=== PATIENT | female | born 1955 | race Caucasian/White ===

== ENCOUNTER → 2017-12-25 08:04 | Outpatient (CLI) | payer OTHER, SELFPAY ==
[2017-12-29 11:55] LABS: HPV APTIMA, High Risk Negative (Negative)
== END ==
PROVIDERS: Visit Provider Obstetrics & Gynecology
DX: Z12.4 Encounter for screening for malignant neoplasm of cervix (principal)
CPT/HCPCS: 88175; G0145

== ENCOUNTER 2018-06-21 09:55 | Observation (INO) | payer OTHER, SELFPAY ==
--- NOTE | 2018-06-15 16:42 | EKG12_ITS ---
Test Reason : PRE OP Blood Pressure : / mmHG Vent. Rate : 077 BPM Atrial Rate : 077 BPM P-R Int : 160 ms QRS Dur : 084 ms QT Int : 398 ms P-R-T Axes : 074 070 049 degrees QTc Int : 450 ms Normal sinus rhythm Normal ECG Confirmed by REINIER CRUM ([id number]), associate editor MIRANDA ESPAÑA ([id number] on 06/20/2018 2:34:23 PM Referred By: Melvina Luther Confirmed By:REINIER CRUM
[2018-06-15 17:35] LABS: Hematocrit 42.5 % (37-47); Hemoglobin 14.3 g/dl (12.0-15.0); Mean Corp Hgb Conc 33.6 g/gl (32-36); Mean Corpuscular Hgb 30.2 pg (27.0-32.0); Mean Corpuscular Volume 89.9 fL (81-99); Mean Platelet Vol. 9.3 fl (6.2-12.0); Platelet Count 325 K/mm3 (150-450); RBC Distribution Width CV 13.2 % (11.6-14.6); RBC Distribution Width SD 43.2 fl (35.1-43.9); Red Blood Count 4.73 M/mm3 (4.2-5.4); White Blood Count 7.1 K/mm3 (4.4-11.0)
[2018-06-15 17:45] LABS: Scan Indicated on CBC? Y/N NO
[2018-06-15 17:46] LABS: Prothrombin Time (Protime)PT. 13.2 SECONDS (11.7-14.9)
[2018-06-15 17:47] LABS: Partial Thromboplast Time 31.8 Seconds (24.1-36.2)
[2018-06-15 17:50] LABS: Anion Gap 7 (5-15); BUN 16 mg/dL (7-18); BUN/Creat Ratio 23.7 RATIO (10-20); Calcium,Total 9.1 mg/dL (8.5-10.1); Chloride 102 mmol/L (98-107); Creatinine, Serum 0.68 mg/dL (0.55-1.02); EST Glomerular Filtration Rate 94 mL/min (>60); Est Glom Filt Rate - Afr Amer 114 mL/min (>60); Glucose 85 mg/dL (74-106); Potassium 3.6 mmol/L (3.5-5.1); Sodium Level 141 mmol/L (136-145)
[2018-06-21] VITALS (17 sets, daily range): BP systolic 76–152; BP diastolic 45–85; PULSE 60–88; RESP 16–18; TEMP 36.3–37.1; O2SAT 94–100; BMI 25.0; BMI 25.6
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
--- NOTE | 2018-06-21 07:15 | HYST_PTH ---
PATIENT: JAZMINE SOTO LOC: MS2 U#:[id number] AGE/SX: 63/F ROOM: MS208 RE06/21/[address]: Dr. Melvina Carrillo MD : 1955 BED: 1 DIS: 06/22/2018 SPEC #: [id number] RECD: 06/22/18 14:27 STATUS: KENN GRAEME #: [id number] ADEOLA: 06/21/18 07:[address]: Melvina Bautista DEPT: SURGICAL PATHOLOGY RECD BY: John Rodriguez ENTERED: 06/22/18 14:28 SP TYPE: HYSTERECT OTHR DR: Dr. Tammy Jimenez MD Tissues: Uterus, NOS Procedures: Surgery Specimen Level V HEADER OPERATION: Vaginal hysterectomy, bilateral salpingo-oophorectomy PRE-OP DIAGNOSIS: Incomplete uterovaginal prolapse and rectocele TISSUE SUBMITTED: Uterus, bilateral ovaries and fallopian tubes (tie on left ovary and fallopian tube) MICROSCOPIC DIAGNOSIS Uterus, hysterectomy: Cervix - nabothian cysts and minimal chronic inflammation. Endometrium - inactive endometrium with cystic change. Myometrium - leiomyoma. Right ovary - corpora albicantia. Right fallopian tube - no pathologic change. Left ovary - corpora albicantia. Left fallopian tube - no pathologic change. AM:jam 06/25/18 MICROSCOPIC DESCRIPTION Slides are reviewed. GROSS DESCRIPTION Received in fixative is one container labeled with the patient's name and designated uterus. The specimen consists of a uterus with attached cervix and detached right and left fallopian tubes. The uterus with cervix measures 9 x 4 x 3.5 cm and weighs 53.6 gm. The ectocervix is unremarkable. The cervical os is oval in contour. The endocervical canal measures 2 cm in length and is grossly unremarkable. The triangular endometrial cavity measures 3 x 2 cm. The velvety, light vilchis endometrium measures up to 0.1 cm in thickness. The myometrium measures 1.2 cm in average thickness and is distorted by a firm, rubbery, vilchis-white nodule measuring 3 x 2.2 x 2 cm. The nodule is submucosal and intramural in location. Cut surface of the nodule reveal a whorled appearance without areas of cyst formation or necrosis. The right ovary is light vilchis, elongated measuring 4.2 x 1 x 0.5 cm. Serial sections of the ovary do not reveal mass lesions. The right fallopian tube measures 2.2 cm in length and 0.3 cm in average diameter. No tubo-ovarian adhesions are seen. The left ovary is similar in appearance to right ovary and measures 3.5 x 1.2 x 0.5 cm. Serial sections likewise do not reveal mass lesions. The left fallopian tube is similar in appearance to right fallopian tube measuring 3.5 cm in length and 0.3 cm in average diameter. No tubo-ovarian adhesions are seen. [employer] Assistant sections are submitted in eight cassettes as follows: 1 - anterior cervix, 2 - posterior cervix, 3 - anterior uterine wall, 4 - posterior uterine wall, 5 & 7 - myometrial nodule, 6 - right fallopian tube and ovary, 8 - left fallopian tube and ovary. / AM:jam 06/22/18 TC:1 CPT: 12816
[2018-06-21] MEDS: Lubricating Jelly 60 GM Tube 30 GM TOPICAL (07:49)
[2018-06-21] MEDS: Vasopressin 20 UNITS/ML Vial (07:50)
[2018-06-21] MEDS: Estrogens,Conj. 1 Tube 1 DOSE (09:44)
--- NOTE | 2018-06-21 10:00 | PCM.OPRPT ---
Problem List (1) Uterovaginal prolapse, incomplete Status: Acute (2) Rectocele Status: Acute Report of Operation Date of Procedure: 06/21/18 Pre-Operative Diagnosis: Uterovaginal prolapse, rectocele Post-Operative Diagnosis: Uterovaginal prolapse, rectocele Surgery/Procedure Performed:: Total vaginal hysterectomy, bilateral salpingo-oophorectomy, Modified Schaeffer's culdoplasty, posterior repair with perineorrhaphy elder counselor: Cisco Lomas elder counselor: Lázaro Milton Type of Anesthesia:: General Anesthesiologist: Fidencio Feliz Specimen's removed: 1.uterus and cervix. 2. tubes and ovaries Estimated Blood Loss (mL): 200 Description of Procedure: Indications: 63-year-old para 3003 with a history of uterovaginal prolapse with rectocele presents for scheduled total vaginal hysterectomy, bilateral salpingo-oophorectomy, possible sacral spinous ligament fixation and possible rectocele. Risks, benefits, indications and alternatives of procedure were reviewed at length and patient desired to proceed. Patient was agreeable to the sacrospinous ligament fixation being performed by Dr. Lomas this was discussed prior to her procedure. Procedure: The patient was taken to the operating room and Center was performed. She is placed in a dorsal supine position and induced under general anesthesia and intubated. She is then placed into dorsal lithotomy and examination under anesthesia was performed. The perineum was then prepped and draped in sterile fashion. A Awll catheter was placed into the bladder. Patient was placed into high lithotomy. Weighted speculum was placed into the vagina and the cervix grasped using a Xavier tenaculum. A total of 10 cc of 20 units of vasopressin diluted in 100 cc of normal saline was injected weekly. A circumferential incision was made using a scalpel along the cervix. The vesicouterine space was developed using sharp dissection using the Metzenbaum scissors. A curved Asha was placed to retract the anterior mucus and bladder. The anterior cul-de-sac peritoneum was identified and sharply entered. The curved Asha was placed into the anterior cul-de-sac. In similar fashion, attention was turned to the posterior cervix and the posterior cul-de-sac was sharply entered. A long weighted speculum was placed into the posterior cul-de-sac. The uterosacral, uterine vessels and cardinal ligaments were serially Elizabeth clamps, cut and suture ligated using 0 Vicryl. 0 Vicryl was used for all sutures in this case unless otherwise noted. The right then left utero-ovarian ligaments was Elizabeth clamped cut and suture ligated and the uterus and cervix released. Attention was turned to the left adnexa. The left tubal fimbria was identified in the ovary followed back to the infundibular pelvic ligament. The ligament was clamped, cut however lost during suture ligation with retraction. The pedicle was identified and suture ligated with good hemostasis. Attention was then turned to the right adnexa, the tubal fimbria and ovary were identified and tracked back to the infundibular pelvic ligament. The right infundibulopelvic ligament was Elizabeth clamps, cut and suture-ligated doubly with good hemostasis. There was some bleeding from the posterior peritoneum thus the posterior cuff was reefed using 0 Vicryl running lock suture with improved hemostasis. The vaginal cuff did not have significant descensus thus I felt the sacrospinous ligament fixation was no longer indicated. I proceeded with a modified Schaeffer culdoplasty incorporating the uterosacral ligaments with the posterior peritoneum in a single suture. Vaginal cuff was then closed longitudinally using serial [id number] sutures. Attention was then turned to the perineum. A transverse incision was made just anterior to the hymenal ring and a triangular segment of perineal epithelium was excised. The vaginal epithelium was sharply dissected from the underlying fascia at the longitudinally to just above the level of the rectocele and midline incision performed here. The rectocele sac and fascia was bluntly dissected from the overlying epithelium. The fascia was reapproximated using 2-0 Vicryl simple interrupted sutures at the midline with rectocele sac reduction. Excess vaginal epithelium was excised and discarded. The posterior vaginal epithelium was reapproximated using 0 Vicryl to the level of the hymenal ring. The bulbocavernosus ligaments at insertion to the perineal body was reinforced using suture. The skin was closed subcuticularly. A vaginal packing with premarin was placed vaginally and the procedure complete. Sponge, instrument and needle counts were correct x 2. - Complications None - Admit VTE Documentation VTE Present on Admission: No VTE Mechan Device Prophylaxis: SCD's VTE Pharm Prophylaxis ordered?: No
--- NOTE | 2018-06-21 10:11 | OP.PCM_ITS ---
Problem List (1) Uterovaginal prolapse, incomplete Status: Acute (2) Rectocele Status: Acute Report of Operation Date of Procedure: 06/21/18 Pre-Operative Diagnosis: Uterovaginal prolapse, rectocele Post-Operative Diagnosis: Uterovaginal prolapse, rectocele Surgery/Procedure Performed:: Total vaginal hysterectomy, bilateral salpingo- oophorectomy, Modified Schaeffer's culdoplasty, posterior repair with perineorrhaphy supervisor powdered sugar: Cisco Lomas supervisor powdered sugar: Lázaro Milton Type of Anesthesia:: General Anesthesiologist: Fidencio Feliz Specimen's removed: 1.uterus and cervix. 2. tubes and ovaries Estimated Blood Loss (mL): 200 Description of Procedure: Indications: 63-year-old para 3003 with a history of uterovaginal prolapse with rectocele presents for scheduled total vaginal hysterectomy, bilateral salpingo- oophorectomy, possible sacral spinous ligament fixation and possible rectocele. Risks, benefits, indications and alternatives of procedure were reviewed at length and patient desired to proceed. Patient was agreeable to the sacrospinous ligament fixation being performed by Dr. Lomas this was discussed prior to her procedure. Procedure: The patient was taken to the operating room and Center was performed. She is placed in a dorsal supine position and induced under general anesthesia and intubated. She is then placed into dorsal lithotomy and examination under anesthesia was performed. The perineum was then prepped and draped in sterile fashion. A Wall catheter was placed into the bladder. Patient was placed into high lithotomy. Weighted speculum was placed into the vagina and the cervix grasped using a Xavier tenaculum. A total of 10 cc of 20 units of vasopressin diluted in 100 cc of normal saline was injected weekly. A circumferential incision was made using a scalpel along the cervix. The vesicouterine space was developed using sharp dissection using the Metzenbaum scissors. A curved Asha was placed to retract the anterior mucus and bladder. The anterior cul-de-sac peritoneum was identified and sharply entered. The curved [place] was placed into the anterior cul-de-sac. In similar fashion, attention was turned to the posterior cervix and the posterior cul-de-sac was sharply entered. A long weighted speculum was placed into the posterior cul-de-sac. The uterosacral, uterine vessels and cardinal ligaments were serially Elizabeht clamps, cut and suture ligated using 0 Vicryl. 0 Vicryl was used for all sutures in this case unless otherwise noted. The right then left utero-ovarian ligaments was Elizabeth clamped cut and suture ligated and the uterus and cervix released. Attention was turned to the left adnexa. The left tubal fimbria was identified in the ovary followed back to the infundibular pelvic ligament. The ligament was clamped, cut however lost during suture ligation with retraction. The pedicle was identified and suture ligated with good hemostasis. Attention was then turned to the right adnexa, the tubal fimbria and ovary were identified and tracked back to the infundibular pelvic ligament. The right infundibulopelvic ligament was Elizabeth clamps, cut and suture-ligated doubly with good hemostasis. There was some bleeding from the posterior peritoneum thus the posterior cuff was reefed using 0 Vicryl running lock suture with improved hemostasis. The vaginal cuff did not have significant descensus thus I felt the sacrospinous ligament fixation was no longer indicated. I proceeded with a modified Schaeffer culdoplasty incorporating the uterosacral ligaments with the posterior peritoneum in a single suture. Vaginal cuff was then closed longitudinally using serial [id number] sutures. Attention was then turned to the perineum. A transverse incision was made just anterior to the hymenal ring and a triangular segment of perineal epithelium was excised. The vaginal epithelium was sharply dissected from the underlying fascia at the longitudinally to just above the level of the rectocele and midline incision performed here. The rectocele sac and fascia was bluntly dissected from the overlying epithelium. The fascia was reapproximated using 2-0 Vicryl simple interrupted sutures at the midline with rectocele sac reduction. Excess vaginal epithelium was excised and discarded. The posterior vaginal epithelium was reapproximated using 0 Vicryl to the level of the hymenal ring. The bulbocavernosus ligaments at insertion to the perineal body was reinforced using suture. The skin was closed subcuticularly. A vaginal packing with premarin was placed vaginally and the procedure complete. Sponge, instrument and needle counts were correct x 2. - Complications None - Admit VTE Documentation VTE Present on Admission: No VTE Mechan Device Prophylaxis: SCD's VTE Pharm Prophylaxis ordered?: No
[2018-06-21] MEDS: Dextrose 5%-Lactated Ringers 1,000 ML 100 ML IV (12:53)
[2018-06-21] MEDS: Ketorolac 15 MG/ML Vial IV ×2 (13:06→21:44)
[2018-06-21] MEDS: 0.9% NaCl Peripheral Flush Adult/Peds IV ×3 (13:06→21:44)
[2018-06-21 15:53] LABS: Hematocrit 38.2 % (37-47); Hemoglobin 12.7 g/dl (12.0-15.0); Mean Corp Hgb Conc 33.2 g/gl (32-36); Mean Corpuscular Hgb 29.7 pg (27.0-32.0); Mean Corpuscular Volume 89.5 fL (81-99); Mean Platelet Vol. 8.8 fl (6.2-12.0); Platelet Count 235 K/mm3 (150-450); RBC Distribution Width CV 13.3 % (11.6-14.6); RBC Distribution Width SD 43.9 fl (35.1-43.9); Red Blood Count 4.27 M/mm3 (4.2-5.4); Scan Indicated on CBC? Y/N NO; White Blood Count 10.7 K/mm3 (4.4-11.0)
--- NOTE | 2018-06-21 21:08 | PCM.PN.OB ---
Patient Problems: Active and Suspected Problems Uterovaginal prolapse, incomplete (Acute) Rectocele (Acute) Subjective: Denies lightheadedness, shortness of breath or chest pain. OOB and ambulating. Tolerating CLD. No flatus yet. Denies vaginal bleeding. She is sore, but pain minimal. - Physical Exam General: Alert, Oriented x3, Cooperative, No apparent distress HEENT: Atraumatic, Normocephalic Abdomen: Soft, Non Tender, Non-Distended Extremities: No Calf Tenderness Psych/Mental Status: Normal Affect, Appropriate, Alert and oriented to time, place, person, mood and affect Vital Signs Temp Pulse Resp BP Pulse Ox 98.6 F 83 18 96/57 L 97 06/21/18 16:26 06/21/18 16:26 06/21/18 16:26 06/21/18 16:26 06/21/18 16:26 Oxygen Flow Rate (L/min) 2 Oxygen Delivery Method Room Air Weight: 58.5 kg Body Mass Index (BMI) 25.6 Intake and Output for Last 24 Hours 06/19/18 06/20/18 06/21/18 23:59 23:59 23:59 Intake Total 7536 / 7536 Output Total 790 / 790 Balance 6746 / 6746 Laboratory Tests Past 24 Hrs 06/21/18 15:40 WBC 10.7 RBC 4.27 Hgb 12.7 Hct 38.2 MCV 89.5 MCH 29.7 MCHC 33.2 RDW 13.3 RDW Differential 43.9 Plt Count 235 MPV 8.8 Medical Necessity - Tobacco Use Smoking Status: Never smoker Tobacco Use: Non-smoker Assessment/Plan All Active Problems Uterovaginal prolapse, incomplete (Acute) Rectocele (Acute) 63yo s/p TVH,BSO, rectocele repair doing well. -IVF d/c'd -pm CBC appropriate -Remove vaginal packing in am -Reviewed procedural findings - pt understands no indication for SSLF following hysterectomy, thus not performed and discussed that rectocele was repaired given severity under anesthesia as previously planned. Discussed home care including lifting restrictions and pelvic rest. -Routine postop care
[2018-06-21] MEDS: Enoxaparin 40 MG/0.4 ML Syringe SC (21:45)
[2018-06-22] MEDS: Ketorolac 15 MG/ML Vial IV (03:45)
[2018-06-22] MEDS: 0.9% NaCl Peripheral Flush Adult/Peds IV (03:45)
[2018-06-22 03:53] VITALS: BP 109/55; PULSE 75; RESP 16; TEMP 37; O2SAT 97
[2018-06-22 06:30] LABS: Hematocrit 35.5 % (37-47); Hemoglobin 11.7 g/dl (12.0-15.0); Mean Corpuscular Hgb 29.8 pg (27.0-32.0); Mean Corpuscular Volume 90.6 fL (81-99); Mean Platelet Vol. 9.4 fl (6.2-12.0); Platelet Count 241 K/mm3 (150-450); RBC Distribution Width CV 13.5 % (11.6-14.6); RBC Distribution Width SD 43.9 fl (35.1-43.9); Red Blood Count 3.92 M/mm3 (4.2-5.4); White Blood Count 15.2 K/mm3 (4.4-11.0)
[2018-06-22 06:40] LABS: Scan Indicated on CBC? Y/N NO
[2018-06-22 06:41] LABS: Creatinine, Serum 0.56 mg/dL (0.55-1.02); EST Glomerular Filtration Rate 116 mL/min (>60); Est Glom Filt Rate - Afr Amer 140 mL/min (>60); Estimated Creatinine Clearance 97.43 ml/min
--- NOTE | 2018-06-22 08:13 | PCM.PN.OB ---
Patient Problems: Active and Suspected Problems Uterovaginal prolapse, incomplete (Acute) Rectocele (Acute) Subjective: No issues overnight. Pain minimal. OOB, passing flatus. Ordered regular food for breakfast this morning. Wall removed this am, but has not yet voided. Objective: AVSS - Physical Exam General: Alert, Oriented x3, Cooperative, No apparent distress HEENT: Atraumatic, Normocephalic Lungs: Clear to auscultation, Normal air movement, No rhonchi, No wheeze, No rales Cardiovascular: Regular rate, Regular Rhythm, Normal S1, Normal S2 Abdomen: Bowel Sounds Present, Soft, Non Tender, Non-Distended Extremities: No edema, No Calf Tenderness Psych/Mental Status: Normal Affect, Appropriate, Alert and oriented to time, place, person, mood and affect Comment: VAGINAL PACKING REMOVED - APPROX 33% SATURATED Vital Signs Temp Pulse Resp BP Pulse Ox 98.6 F 75 16 109/55 L 97 06/22/18 03:53 06/22/18 03:53 06/22/18 03:53 06/22/18 03:53 06/22/18 03:53 Oxygen Flow Rate (L/min) 2 Oxygen Delivery Method Room Air Weight: 58.5 kg Body Mass Index (BMI) 25.6 Intake and Output for Last 24 Hours 06/20/18 06/21/18 06/22/18 23:59 23:59 23:59 Intake Total 7536 / 7536 1312 / 1312 Output Total 790 / 790 690 / 690 Balance 6746 / 6746 622 / 622 Laboratory Tests Past 24 Hrs 06/21/18 06/22/18 06/22/18 15:40 06:02 06:02 WBC 10.7 15.2 H RBC 4.27 3.92 L Hgb 12.7 11.7 L Hct 38.2 35.5 L MCV 89.5 90.6 MCH 29.7 29.8 MCHC 33.2 33.0 RDW 13.3 13.5 RDW Differential 43.9 43.9 Plt Count 235 241 MPV 8.8 9.4 Creatinine 0.56 Estim Creat Clear Calc 97.43 Est GFR (MDRD) Af Amer 140 Est GFR (MDRD) Non-Af 116 Medical Necessity - Tobacco Use Smoking Status: Never smoker Tobacco Use: Non-smoker Assessment/Plan All Active Problems Uterovaginal prolapse, incomplete (Acute) Rectocele (Acute) 63yo POD#1 s/p TVH,BSO, rectocele repair doing well. -CBC appropriate -Voiding trial -Anticipate d/c later today
--- NOTE | 2018-06-22 08:19 | DCINST_ITS ---
Discharge Diet: No Restrictions Discharge Activity: Return to Normal Activity, May not drive while taking narcotic pain medications., May Shower May resume sexual activity in: 6 weeks Lifting Restrictions: 10 lb Call your doctor if you observe: Fever of 101 or Higher, Inability to urinate, Inability to have a bowel movement, Using more than one pad per hour, Shortness of breath, Fainting spells, Chest pain, Calf discomfort, Uncontrolled pain Suture Line Care: Avoid Pulling/Pushing Allergies/Adverse Reactions: Allergies Sulfa (Sulfonamide Antibiotics) Allergy (Verified 06/14/18 14:36) Rash Medications to take at Discharge Calcium Carbonate/Vitamin D3 [Calcium 600-Vit D3 2,500 Sftgl] 1 each PO DAILY 06/14/18 Glucosam/Chond/MSM/[place]/Hyal [Glucosamine-Chondr Complex Tab] 1 each PO BID 06/14/18 Hydrochlorothiazide [Hctz] 25 mg PO DAILY 06/14/18 Multivit with Calcium,Iron,Min [Multiple Vitamins For Women] 1 each PO DAILY 06/14/18 Potassium Chloride [K-Dur] 20 meq PO DAILY 06/14/18 Docusate Sodium [Colace] 100 mg PO BID PRN PRN #60 capsule 06/22/18 Ibuprofen 600 mg PO TID PRN #30 tablet 06/22/18 Oxycodone [Oxyir] 1 - 2 tab PO Q6H PRN PRN 7 Days #20 tablet 06/22/18 The following prescriptions were given: Oxycodone [Oxyir] 1 - 2 tab PO Q6H PRN PRN 7 Days #20 tablet PRN Reason: Mod-Severe Pain (4-1010) Docusate Sodium [Colace] 100 mg PO BID PRN PRN #60 capsule PRN Reason: Constipation Ibuprofen 600 mg PO TID PRN #30 tablet PRN Reason: Pain Primary Care Physician: Tammy Jimenez MD [Primary Care Provider] - Test Results: Test results from this visit will be discussed in further detail at your follow- up appointment, if applicable. Please Follow Up With: Melvina Luther MD When: 2 weeks
[2018-06-22 08:30] VITALS: BP 93/50; PULSE 72; RESP 14; TEMP 36.9; O2SAT 96
[2018-06-22] MEDS: Ketorolac 10 MG Tablet PO (08:36)
[2018-06-22 10:04] VITALS: O2SAT 96
[2018-06-22 11:35] VITALS: BP 105/55; PULSE 78; RESP 14; TEMP 36.7; O2SAT 98
== END 2018-06-22 11:45 | disposition home or self-care (01) ==
LOC: SDC 10:03
PROVIDERS: Admitting Provider Obstetrics & Gynecology; Referring Provider Obstetrics & Gynecology; Visit Provider Obstetrics & Gynecology
PROC: (CPT 58260; principal; 2018-06-21 06:55)
DX: N81.2 Incomplete uterovaginal prolapse (principal); Z79.899 Other long term (current) drug therapy; I10 Essential (primary) hypertension; Z87.891 Personal history of nicotine dependence; N88.8 Other specified noninflammatory disorders of cervix uteri; D25.9 Leiomyoma of uterus, unspecified; N83.292 Other ovarian cyst, left side; N83.291 Other ovarian cyst, right side
CPT/HCPCS: 58263; 36415; 80048; 82565; 85027; 85610; 85730; 86850; 86900; 88307; 93005; 96361; 96372; 96374; 96376; 99218; J7120; A4216; G0378; G0379; J2405